=== PATIENT | male | born 1975 ===

== ENCOUNTER 2018-11-12 13:20 | Emergency (ER) | payer OTHER ==
[2018-11-12 13:29] VITALS: BP 152/101; PULSE 64; RESP 18; TEMP 98.8; O2SAT 98
[2018-11-12] MEDS ORDERED: Lidocaine 1% (10 ml) Inj INFIL ONE (13:33)
[2018-11-12] MEDS ORDERED: Tdap Vaccine 0.5 ml Vial (10-64 yrs) IM ONE (13:33)
--- NOTE | 2018-11-12 13:44 | ED PDOC ---
Upper Extremity Pain/Injury Time Seen by Provider: 11/12/18 13:29 Chief Complaint (Nursing): Abnormal Skin Integrity Chief Complaint (Provider): Laceration to left palm History Per: Patient History/Exam Limitations: no limitations Onset/Duration Of Symptoms: Mins Current Symptoms Are (Timing): Still Present Additional History Per: Patient Additional Complaint(s): 43yo male, otherwise well, comes to ER for evaluation of a laceration to his left palm, sustained while at work. Patient states he was using an automatic drill, when he accidentally cut his left palm. He otherwise deneis any weakness, numbness, tingling, or foreign body sensation. No additional complaints. Patient reports he is unsure if his tetanus vaccine is up to date. PMD: None provided Past Medical History Reviewed: Historical Data, Nursing Documentation, Vital Signs Vital Signs: Last Vital Signs Temp 98.8 F 11/12/18 13:26 Pulse 64 11/12/18 13:26 Resp 18 11/12/18 13:26 BP 152/101 H 11/12/18 13:26 Pulse Ox 98 11/12/18 13:26 - Medical History PMH: No Chronic Diseases - Surgical History Surgical History: No Surg Hx - Family History Family History: States: No Known Family Hx - Home Medications Home Medications: Ambulatory Orders Medication Instructions Recorded Cephalexin [cephalexin] 500 mg PO Q6 #12 cap 11/12/18 - Allergies Allergies/Adverse Reactions: Allergies Allergy/AdvReac Type Severity Reaction Status Date / Time No Known Allergies Allergy Verified 11/12/18 13:25 Review of Systems ROS Statement: Except As Marked, All Systems Reviewed And Found Negative Musculoskeletal: Positive for: Hand Pain (left) Skin: Positive for: Other (laceration to left palm) Neurological: Negative for: Weakness, Numbness Physical Exam - Reviewed Nursing Documentation Reviewed: Yes Vital Signs Reviewed: Yes - Physical Exam Appears: Positive for: Non-toxic, No Acute Distress Head Exam: Positive for: ATRAUMATIC, NORMAL INSPECTION, NORMOCEPHALIC Skin: Positive for: Normal Color Pulses-Radial (L): 2+ Pulses-Radial (R): 2+ Extremity: Positive for: Normal ROM (Full active ROM of all digits on left palm), Capillary Refill (< 2 seconds), Other (on the left palm, between the 3rd and 4th MCP, there is a 2 cm linear superficial laceration; no active bleeding.). Negative for: Deformity, Swelling Neurologic/Psych: Positive for: Alert, Oriented. Negative for: Motor/Sensory Deficits - ECG O2 Sat by Pulse Oximetry: 98 (RA) Pulse Ox Interpretation: Normal Medical Decision Making Medical Decision Making: Impression: Laceration repair Plan: -- See procedure note for laceration repair -- Adace 0.5ml IM -- XR Left hand 1455 Laceration repaired, patient tolerated procedure well. Stable for discharge home, instructed to f/u with PMD or return here in 7 days for suture removal. Scribe Attestation: Documented by Alannah Douglass, acting as a scribe for ELIAS Galvez. Provider Scribe Attestation: All medical record entries made by the Scribe were at my direction and personally dictated by me. I have reviewed the chart and agree that the record accurately reflects my personal performance of the history, physical exam, medical decision making, and the department course for this patient. I have also personally directed, reviewed, and agree with the discharge instructions and disposition. Procedures - Time-Out Type of Procedure: Laceration repair Site of Procedure: left palm Correct Patient: Yes Correct Procedure: Yes - Laceration/Wound Repair Left palm Wound Length (cm): 2 Wound's Depth, Shape: superficial, linear Wound Explored: clean Anesthesia: 1% Lidocaine Volume Anesthetic (ccs): 6 Wound Repaired With: Sutures Suture Size/Type: 5:0, nylon Number of Sutures: 5 Wound Complexity: Simple Sterile Dressing Applied?: Yes Progress: Patient tolerated procedure well. Disposition - Clinical Impression Clinical Impression: Hand laceration - Patient ED Disposition Is Patient to be Admitted: No - Disposition Referrals: [facility] [Outside] Disposition: Routine/Home Disposition Time: 14:56 Condition: STABLE Additional Instructions: SUTURE REMOVAL IN 7 DAYS BRY HO, thank you for letting us take care of you today. Your provider was Cornelia Raymundo MD and you were treated for WC:LT HAND LACERATION. The emergency medical care you received today was directed at your acute symptoms. If you were prescribed any medication, please fill it and take as directed. It may take several days for your symptoms to resolve. Return to the Emergency Department if your symptoms worsen, do not improve, or if you have any other problems. Please contact your doctor or call one of the physicians/clinics you have been referred to that are listed on the Patient Visit Information form that is included in your discharge packet. Bring any paperwork you were given at discharge with you along with any medications you are taking to your follow up visit. Our treatment cannot replace ongoing medical care by a primary care provider outside of the emergency department. Thank you for allowing the [facility] team to be part of your care today. If you had an X-Ray or CT scan: A Radiologist will review the ED reading if any change in treatment is needed we will contact you. If you had a blood, urine, or wound culture: It will take several days for the results, if any change in treatment is needed we will contact you. If you had an STI test: It will take 48 hours for the results. Please call after 1 week if you have not heard back. Prescriptions: Cephalexin [cephalexin] 500 mg PO Q6 #12 cap Instructions: Laceration Repair With Stitches (DC) Forms: [employer] (Sami)
[2018-11-12] MEDS ORDERED: Lidocaine 1% Inj (20ml) ONE (13:57)
[2018-11-12] MEDS ORDERED: Lidocaine 1% Inj (20ml) INFIL ONE (14:30)
--- NOTE | 2018-11-12 16:53 | RAD ---
PROCEDURE: Left Hand Radiographs. HISTORY: laceration COMPARISON: None. FINDINGS: BONES: Normal. No fracture. JOINTS: . 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 SOFT TISSUES: Normal. No visualized radiopaque foreign body. OTHER FINDINGS: None. IMPRESSION: No acute findings related to/ accounting for the clinical presentation.
== END 2018-11-12 15:23 | disposition home or self-care (01) ==
LOC: H.ER 13:20
DX: W31.1XXA Contact with metalworking machines, initial encounter (principal); Y99.0 Civilian activity done for income or pay; Z23 Encounter for immunization

== ENCOUNTER 2018-11-15 12:49 | Emergency (ER) | payer OTHER, SELFPAY ==
[2018-11-15 12:55] VITALS: BP 136/82; PULSE 61; RESP 18; TEMP 98.5; O2SAT 99
--- NOTE | 2018-11-15 13:04 | ED PDOC ---
HPI: General Adult Time Seen by Provider: 11/15/18 13:04 Chief Complaint (Nursing): Abnormal Skin Integrity Chief Complaint (Provider): Left Armpit Swelling History Per: Patient, Family () History/Exam Limitations: no limitations Onset/Duration Of Symptoms: Days (x3) Current Symptoms Are (Timing): Still Present Additional Complaint(s): 43 year old male presents to the ED for evaluation of a "ball" under his left armpit. Patient notes that three days ago he was seen in this ED for a drill bit laceration to his left hand, and since has had increased swelling under his left armpit which feels like a ball. Reports being compliant with antibiotics provided and denies any wound complications. Additionally, patient notes having a fever yesterday with occasional sweating, but is unsure if it is related. PMD: none provided Past Medical History Reviewed: Historical Data, Nursing Documentation, Vital Signs Vital Signs: Last Vital Signs Temp 98.5 F 11/15/18 12:53 Pulse 61 11/15/18 12:53 Resp 18 11/15/18 12:53 BP 136/82 11/15/18 12:53 Pulse Ox 99 11/15/18 12:53 - Medical History PMH: No Chronic Diseases - Family History Family History: States: Unknown Family Hx - Immunization History Hx Tetanus Toxoid Vaccination: No Hx Influenza Vaccination: No Hx Pneumococcal Vaccination: No - Home Medications Home Medications: Ambulatory Orders Medication Instructions Recorded Cephalexin [cephalexin] 500 mg PO Q6 #12 cap 11/12/18 - Allergies Allergies/Adverse Reactions: Allergies Allergy/AdvReac Type Severity Reaction Status Date / Time No Known Allergies Allergy Verified 11/15/18 12:53 Review of Systems ROS Statement: Except As Marked, All Systems Reviewed And Found Negative Constitutional: Positive for: Fever, Sweats, Malaise Musculoskeletal: Positive for: Other (swelling under left armpit) Physical Exam - Reviewed Nursing Documentation Reviewed: Yes Vital Signs Reviewed: Yes - Physical Exam Appears: Positive for: No Acute Distress Skin: Positive for: Normal Color, Warm. Negative for: Rash Neck: Positive for: Normal, Painless ROM, Supple. Negative for: Decreased ROM Cardiovascular/Chest: Positive for: Regular Rate, Rhythm Respiratory: Positive for: Normal Breath Sounds. Negative for: Respiratory Distress Extremity: Positive for: Normal ROM (of left upper extremity) Lymphatic: Positive for: Other (inflamed axillary lymph node under left armpit which is tender to palpation and non-erythematous) Neurologic/Psych: Positive for: Alert, Oriented (x3). Negative for: Motor/Sensory Deficits - Laboratory Results Result Diagrams: 11/15/18 13:05 11/15/18 13:05 - ECG O2 Sat by Pulse Oximetry: 99 (RA) Pulse Ox Interpretation: Normal Medical Decision Making Medical Decision Making: Time: 1307 Initial Impression: lymphadenopathy, r/o infection Initial Plan: --CMP --CBC with differential --Influenza A B swab --600mg Motrin PO --650mg Tylenol PO 1353 Flu negative. Discussed with patient his elevated liver function blood work results (AST, ALT). Patient notes that he is not a heavy drinker, and has only been taking recommended doses of Tylenol for his hand, but does work in construction putting in kitchen / bathrooms. Patient informed that we will test for Hepatitis and results will be back tomorrow. -------- --------- Scribe Attestation: Documented by Celena Mead, acting as a scribe for Neno Espinoza PA-C. Provider Scribe Attestation: All medical record entries made by the Scribe were at my direction and personally dictated by me. I have reviewed the chart and agree that the record accurately reflects my personal performance of the history, physical exam, medical decision making, and the department course for this patient. I have also personally directed, reviewed, and agree with the discharge instructions and disposition. Disposition - Clinical Impression Clinical Impression: Lymphadenopathy - Patient ED Disposition Is Patient to be Admitted: No Doctor Will See Patient In The: Office Counseled Patient/Family Regarding: Studies Performed, Diagnosis, Need For Followup - Disposition Referrals: [facility] [Outside] Disposition: Routine/Home Disposition Time: 14:27 Condition: STABLE Additional Instructions: Pt will phone into medical records tomorrow for test results Instructions: Lymphadenitis (DC) Forms: [email or web address] (Ukrainian)
[2018-11-15 13:21] LABS: BASO # 0.1 K/uL (0.0-0.2); BASO % 0.7 % (0.0-2.0); EOS # 0.2 K/uL (0.0-0.7); HEMOGLOBIN 16.5 g/dL (12.0-18.0); LYMPH # 2.1 K/uL (1.0-4.3); LYMPH % 20.5 % (20.0-40.0); MEAN CELL VOLUME 88.7 fl (80.0-94.0); MEAN CORPUSCULAR HEMOGLOBIN 30.8 pg (27.0-31.0); MEAN CORPUSCULAR HGB CONC 34.7 g/dL (33.0-37.0); MEAN PLATELET VOLUME 7.8 fl (7.2-11.7); MONO % 9.9 % (0.0-10.0); NEUT % 66.9 % (50.0-75.0); NRBC % 0.1 % (0.0-0.0); RBC 5.37 Mil/uL (4.40-5.90); RED CELL DISTRIBUTION WIDTH 13.1 % (11.5-14.5); WHITE BLOOD COUNT 10.4 K/uL (4.8-10.8)
[2018-11-15 13:24] LABS: ALB/GLOB RATIO 1.3 (1.0-2.1); ALBUMIN 4.8 g/dL (3.5-5.0); ALT/SGPT 167 U/L (21-72); AST/SGOT 109 U/L (17-59); BLOOD UREA NITROGEN 13 mg/dl (9-20); CALCIUM 9.6 mg/dL (8.4-10.2); GFR NON-AFRICAN AMERICAN > 60
[2018-11-15 20:21] LABS: HEPATITIS B SURFACE AG Negative (NEGATIVE)
[2018-11-15 20:27] LABS: HEPATITIS A IGM NEGATIVE (NEGATIVE); HEPATITIS B CORE AB NEGATIVE (NEGATIVE)
[2018-11-15 20:39] LABS: HEPATITIS C ANTIBODY NEGATIVE (NEGATIVE)
== END 2018-11-15 14:42 | disposition home or self-care (01) ==
LOC: H.ER 12:49
DX: R59.0 Localized enlarged lymph nodes (principal)

== ENCOUNTER 2018-11-21 21:28 | Emergency (ER) | payer SELFPAY ==
[2018-11-22] MEDS ORDERED: Sodium Chloride 0.9% 1,000 ML IV STA (00:20)
[2018-11-22 00:50] LABS: BASO # 0.1 K/uL (0.0-0.2); BASO % 0.9 % (0.0-2.0); EOS # 0.3 K/uL (0.0-0.7); EOS % 2.3 % (0.0-4.0); HEMOGLOBIN 16.1 g/dL (12.0-18.0); LYMPH # 4.3 K/uL (1.0-4.3); LYMPH % 35.2 % (20.0-40.0); MEAN CELL VOLUME 89.5 fl (80.0-94.0); MEAN CORPUSCULAR HEMOGLOBIN 30.4 pg (27.0-31.0); MEAN PLATELET VOLUME 7.9 fl (7.2-11.7); MONO # 0.9 K/uL (0.0-0.8); MONO % 7.5 % (0.0-10.0); NEUT # 6.6 K/uL (1.8-7.0); NEUT % 54.1 % (50.0-75.0); RBC 5.3 Mil/uL (4.40-5.90); WHITE BLOOD COUNT 12.1 K/uL (4.8-10.8)
[2018-11-22 00:58] LABS: ALB/GLOB RATIO 1.3 (1.0-2.1); ALBUMIN 4.8 g/dL (3.5-5.0); ALT/SGPT 55 U/L (21-72); AST/SGOT 42 U/L (17-59); BLOOD UREA NITROGEN 18 mg/dl (9-20); CALCIUM 9.6 mg/dL (8.4-10.2); GFR NON-AFRICAN AMERICAN > 60; LIPASE 60 U/L (23-300)
[2018-11-22 01:16] LABS: URINE BILIRUBIN NEGATIVE (NEGATIVE); URINE BLOOD NEGATIVE (NEGATIVE); URINE CLARITY CLEAR (Clear); URINE COLOR YELLOW (YELLOW); URINE GLUCOSE (UA) NEG (NEGATIVE); URINE LEUKOCYTE ESTERASE NEG Leu/uL (Negative); URINE PROTEIN NEGATIVE (NEGATIVE); URINE UROBILINOGEN 0.2-1.0 mg/dL (0.2-1.0)
--- NOTE | 2018-11-22 01:45 | ED PDOC ---
HPI: Abdomen Time Seen by Provider: 11/21/18 23:51 Chief Complaint (Nursing): Abdominal Pain Chief Complaint (Provider): Abdominal Pain History Per: Patient History/Exam Limitations: no limitations Location Of Pain/Discomfort: Epigastric Associated Symptoms: denies: Nausea, Diarrhea, Loss Of Appetite, Constipation, Urinary Symptoms Additional Complaint(s): 43 y/o male with no PMHx presents to the ED complaining of epigastric pain onset 1 week ago. Patient reports that symptoms started a week ago but have gotten worse over the past 3 days. Patient states abdominal pain is not associated with nausea or vomiting. Denies any urinary symptoms and states his bowel movements have been normal. Patient was seen in the clinic and was told everything is normal but patient still persists with pain. Past Medical History Reviewed: Historical Data, Nursing Documentation, Vital Signs Vital Signs: Last Vital Signs Temp 98.2 F 11/21/18 22:07 Pulse 88 11/21/18 22:07 Resp 16 11/21/18 22:07 BP 137/100 H 11/21/18 22:07 Pulse Ox 98 11/21/18 22:07 - Medical History PMH: No Chronic Diseases - Surgical History Surgical History: No Surg Hx - Family History Family History: States: Unknown Family Hx - Immunization History Hx Tetanus Toxoid Vaccination: No Hx Influenza Vaccination: No Hx Pneumococcal Vaccination: No - Home Medications Home Medications: Ambulatory Orders Medication Instructions Recorded Cephalexin [cephalexin] 500 mg PO Q6 #12 cap 11/12/18 Famotidine [Pepcid] 20 mg PO BID #20 tab 11/22/18 Ibuprofen [Motrin Tab] 600 mg PO Q6 #30 tab 11/22/18 - Allergies Allergies/Adverse Reactions: Allergies Allergy/AdvReac Type Severity Reaction Status Date / Time No Known Allergies Allergy Verified 11/21/18 22:07 Review of Systems ROS Statement: Except As Marked, All Systems Reviewed And Found Negative Gastrointestinal: Positive for: Abdominal Pain. Negative for: Nausea, Vomiting, Diarrhea, Constipation Genitourinary Male: Negative for: Dysuria, Frequency, Incontinence Physical Exam - Reviewed Nursing Documentation Reviewed: Yes Vital Signs Reviewed: Yes - Physical Exam Appears: Positive for: Well, Non-toxic, No Acute Distress Head Exam: Positive for: ATRAUMATIC, NORMAL INSPECTION, NORMOCEPHALIC Skin: Positive for: Normal Color, Warm, DRY Eye Exam: Positive for: EOMI, Normal appearance, PERRL Neck: Positive for: Normal, Painless ROM Cardiovascular/Chest: Positive for: Regular Rate, Rhythm. Negative for: Chest Non Tender (subzyphoid tenderness) Respiratory: Positive for: Normal Breath Sounds. Negative for: Respiratory Distress Gastrointestinal/Abdominal: Positive for: Tenderness (epigastric) Back: Positive for: Normal Inspection Extremity: Positive for: Normal ROM. Negative for: Pedal Edema, Deformity Neurologic/Psych: Positive for: Alert, Oriented. Negative for: Motor/Sensory Deficits - Laboratory Results Result Diagrams: 11/22/18 00:46 11/22/18 00:46 Lab Results: Total Bilirubin 0.5 mg/dl (0.2-1.3) 11/22/18 00:46 AST 42 U/L (17-59) 11/22/18 00:46 ALT 55 U/L (21-72) 11/22/18 00:46 Alkaline Phosphatase 127 U/L (38-126) H 11/22/18 00:46 Total Protein 8.5 G/DL (6.3-8.2) H 11/22/18 00:46 Albumin 4.8 g/dL (3.5-5.0) 11/22/18 00:46 Globulin 3.7 gm/dL (2.2-3.9) 11/22/18 00:46 Albumin/Globulin Ratio 1.3 (1.0-2.1) 11/22/18 00:46 Lipase 60 U/L (23-300) 02 00:46 Urine Color Yellow (YELLOW) 11/22/18 00:46 Urine Clarity Clear (Clear) 11/22/18 00:46 Urine pH 5.0 (5.0-8.0) 11/22/18 00:46 Ur Specific [place] 1.020 (1.003-1.030) 11/22/18 00:46 Urine Protein Negative mg/dL (NEGATIVE) 11/22/18 00:46 Urine Glucose (UA) Neg mg/dL (NEGATIVE) 11/22/18 00:46 Urine Ketones Negative mg/dL (NEGATIVE) 11/22/18 00:46 Urine Blood Negative (NEGATIVE) 11/22/18 00:46 Urine Nitrate Negative (NEGATIVE) 11/22/18 00:46 Urine Bilirubin Negative (NEGATIVE) 11/22/18 00:46 Urine Urobilinogen 0.2-1.0 mg/dL (0.2-1.0) 11/22/18 00:46 Ur Leukocyte Esterase Neg Clara/uL (Negative) 11/22/18 00:46 Urine RBC (Auto) 1 /hpf (0-3) 11/22/18 00:46 Urine Microscopic WBC 1 /hpf (0-5) 11/22/18 00:46 - ECG O2 Sat by Pulse Oximetry: 98 (RA) Pulse Ox Interpretation: Normal Medical Decision Making Medical Decision Making: Time: 00:19 A/P: 43 y/o with abdominal pain. Gastritis vs biliary disease vs pancreatitis vs constochondritis * EKG * CMP * Lipase * CBC w/ diff * IV fluids * Pepcid 20 mg * Toradol 30 mg * UA 01:03 US Gallbladder ordered 03:03 US Gallbladder Findings: Moderate hepatomegaly measuring 19.8 cm. Increased hepatic echogenicity suggestive of hepatic steatosis. Normal gallbladder thickness measuring 1.5 mm. No evidence of gallstones. Negative sonographic Miller. Nondilated common bile duct measuring 4.7 mm. Limited visualization of the pancreatic tail. Unremarkable IVC Unremarkable aorta measuring 1.6x1.4x1.4 cm. Unremarkable right kidney measuring 10.9x5x5.8 cm. Impression: Hepatomegaly with hepatic steatosis the 03:11 US reviewed. Patient is pain free at this time. Patient understands to follow up with his PMD. Very well appearing upon discharge. Scribe Attestation: Documented by Deandre Griffin acting as a scribe for Frederick Tuttle MD. Provider Scribe Attestation: All medical record entries made by the Scribe were at my direction and personally dictated by me. I have reviewed the chart and agree that the record accurately reflects my personal performance of the history, physical exam, medical decision making, and the department course for this patient. I have also personally directed, reviewed, and agree with the discharge instructions and disposition. Disposition - Clinical Impression Clinical Impression: Gastritis - Disposition Referrals: José Robert MD [Family Provider] - Disposition: Routine/Home Disposition Time: 03:11 Condition: STABLE Prescriptions: Famotidine [Pepcid] 20 mg PO BID #20 tab Ibuprofen [Motrin Tab] 600 mg PO Q6 #30 tab Instructions: Gastritis Forms: [employer] (Albanian) Print Language: MALTESE
[2018-11-22 03:33] VITALS: BP 125/81; PULSE 62; RESP 18; TEMP 97.8
[2018-11-22 04:04] VITALS: O2SAT 98
--- NOTE | 2018-11-22 09:19 | CARD ---
APPROVED REPORT Date of service: 11/21/2018 EKG Measurement Heart [id number] <Conclusion> Normal sinus rhythm Left axis deviation Incomplete right bundle branch block Abnormal ECG
--- NOTE | 2018-11-22 11:07 | US ---
Date of service: 11/22/2018 HISTORY: Epigastric pain. COMPARISON: None. TECHNIQUE: Sonographic evaluation of the right upper quadrant of the abdomen. FINDINGS: LIVER: Measures 19.8 cm in length. Hepatopedal blood flow. Fatty infiltration manifest ultrasonographically as increased echogenicity of the liver parenchyma. No mass. No intrahepatic bile duct dilatation. GALLBLADDER: Cholelithiasis. Negative study for gallbladder wall thickening, pericholecystic fluid, sonographic Miller's sign. COMMON BILE DUCT: Measures 4.7 mm. No stones. No dilatation. PANCREAS: Unremarkable as visualized. No mass. No ductal dilatation. RIGHT KIDNEY: Measures 5 x 10.9 cm in length. Normal echogenicity. No calculus, mass, or hydronephrosis. AORTA: No aneurysmal dilatation. IVC: Unremarkable. OTHER FINDINGS: None . IMPRESSION: Cholelithiasis. No sonographic evidence of acute cholecystitis. Concordant findings (preliminary report) provided by [facility].
== END 2018-11-22 03:36 | disposition home or self-care (01) ==
LOC: H.ER 21:28
DX: K29.70 Gastritis, unspecified, without bleeding (principal); K76.0 Fatty (change of) liver, not elsewhere classified
CPT/HCPCS: 76705; 80053; 81003; 83690; 85025; 93005; 96361; 96374; 96375; 99284; J1885; J7030